=== PATIENT | female | born 1950 | race Caucasian/White ===

== ENCOUNTER → 2019-03-04 15:19 | Emergency (ER) | payer OTHER ==
--- NOTE | 2019-03-04 15:19 | NUR ---
PT STATES THAT SHE JUST WANTED TO KNOW IF WE DO BREAST ASPIRATIONS BY OUR RADIOLOGY DEPARTMENT. PT STATES SHE DOES NOT NEED TO BE SEEN BY OUR ER DR. PT STATES SHE TOOK HER RADIOLOGY DISC TO [facility] AND THEY TOLD HER SHE WOULD HAVE TO MAKE AN APPT IN THE NEXT 3-5 DAYS, SO SHE WANTED TO KNOW IF OUR RADIOLOGY DEPARTMENT WOULD DO IT NOW. EXPLAINED THAT OUR RADIOLOGIST HAVE GONE FOR THE DAY BUT SHE COULD BE SEEN BY OUR ER DR. PT STATES SHE JUST FELT THAT MAYBE SINCE THEY HAVE ALL HER INFORMATION AT [facility], SHE WOULD GO THERE. PT LEFT WITHOUT BEING TRIAGED.
== END | disposition left against medical advice (07) ==
LOC: SED 15:19
DX: N64.4 Mastodynia (principal); Z53.21 Procedure and treatment not carried out due to patient leaving prior to being seen by health care provider